=== PATIENT | male | born 1955 | race Caucasian/White ===

== ENCOUNTER 2016-02-29 10:41 | Emergency (ER) | payer BC ==
[~2016-02-29] VITALS: Ht 188 cm; Wt 94.0 kg
[~2016-02-29 10:41] MED LIST: ASPEC81 PO; CRG3125 PO; FLV1 PO; LPT40 PO; LSN5 PO; METH2.5T PO; NTRGSL/4 UT; PLV75 PO
[2016-02-29 10:46] VITALS: TEMP 36.3; Ht 188 cm; Wt 94.0 kg
[2016-02-29] MEDS ORDERED: AMOX1TAB42 PO (10:53)
--- NOTE | 2016-02-29 11:08 | EMERGENCY ROOM VISIT NOTE ---
History First contact with patient: 11:07 Chief Complaint: EYE ASSESSMENT Stated Complaint: RIGHT EYE ISSUES History of Present Illness The patient is a 60 year old male who presents to the Emergency Room via private vehicle with complaints of "right eye issues". Patient states that in early December he developed a cold that turned into a sinus infection and then develop drainage from his right eye. He states that he was on Augmentin for one month as well as prednisone in a rating seem to clear up. He states that the right eye subconjunctival hemorrhage and oozing lingered. He notes that at the end of January and in early February his sinuses became worse therefore he was also placed upon more Augmentin and notes that he still has one week left of this. The right eye continued to stay red and whose and feel slightly gritty. He states he was going to see the eye doctor this coming week but decided to come in to be seen today. He notes when he woke up today that looked more bloody and was oozing a yellowish green discharge. He notes that he was at [facility] today who sent him here for further evaluation and management. The patient states that the group will sometimes cloud over the pupil but then once he blinks and moves he has clear vision. The patient is on Plavix for a recent myocardial infarction. At this time he denies any chest pain, shortness of breath, fevers, chills, abdominal pain, neck pain, headache, blood coming from his eye. There is minimal associated eye pain rated as a 0-1/10. Review of Systems A complete 6-point Review of Systems was discussed with the patient, with pertinent positives and negatives listed in the History of Present Illness. All remaining Review of Systems questions can be considered negative unless otherwise specified. Past Medical/Surgical History Medical Problems: (1) Ankylosing spondylitis (2) Idiopathic peripheral neuropathy (3) Psoriasis (4) Psoriatic arthritis Heart disease, skin problems, hernia, tonsillectomy, heart attack Family History Cancer FATHER FH: abdominal aortic aneurysm FATHER BROTHER GRANDFATHER No Family History of: FH: aortic aneurysm Diabetes, cancer Social History Smoking Status: Never Smoker Drug Use: none Marital Status: Housing Status: lives with family Occupation Status: employed Social History: Patient is currently employed and lives at home with spouse. 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 Current/Historical Medications Scheduled Amoxicillin & Pot Clavulanate (Amoxicillin/Clavulanate P), 1 TAB PO BID Aspirin (Aspirin EC Low Dose), 81 MG PO QAM Atorvastatin (Atorvastatin Calcium), 40 MG PO QAM Clopidogrel Bisulfate (Clopidogrel), 75 MG PO QAM Folic Acid (Folic Acid), 1 MG PO 6XWK Methotrexate (Methotrexate), 20 MG PO WK Nitroglycerin (Nitrostat), 0.4 MG UT PRN Allergies Coded Allergies: No Known Allergies (Unverified , 07/16/10) Physical Exam Vital Signs Date Time Temp Pulse Resp B/P Pulse Ox O2 Delivery O2 Flow Rate FiO2 02/29/16 12:38 68 18 121/76 100 02/29/16 10:46 36.3 77 18 138/84 100 Room Air Physical Exam VITAL SIGNS - Vital signs and nursing notes were reviewed. Patient is afebrile , normotensive at 138/84, non-tachycardic and saturating well on room air 100%. GENERAL -60-year-old male appearing his stated age. Communicates well with provider and answers questions appropriately. HEAD -Normocephalic, Atraumatic. No Kim's Sign or Raccoon's Eyes. EYES - PERRL with EOMI bilaterally. No hyphema. No evidence of iritis or uveitis. Sclera without noticeable foreign body or excoriations. Right eye with subconjunctival hemorrhage. Palpebral conjunctiva pink and moist with no injection or discharge noted. Slit lamp examination performed as further described. EARS - No deformities of external structures noted on gross examination bilaterally. Handle of malleus, umbo, cone of light, pars tensa/flaccid all easily visualized. NOSE - Midline and without cyanosis. Without discharge. MOUTH/OROPHARYNX - Without perioral cyanosis. Tongue midline with equal elevation of palate bilaterally. No tonsillar hypertrophy, erythema, or exudates noted. Fair dentition noted. NECK - FROM assessed. No cervical lymphadenopathy noted. Slit Lamp Examination was performed of the right eye(s). Alcaine drops were applied to the affected eye(s) for proper anesthetization. The affected eye(s) were stained with Fluorescein stain to precipitate adequate visualization of any conjunctival/scleral excoriations or ulcers. The patient's face was comfortably rested on the chin guard of the slit lamp apparatus. The lights were dimmed and the affected eye(s) were thoroughly examined under microscopy using the blue light. No uptake was present in the right eye. Additionally, the eye(s) were examined under microscopy using the regular light. Close examination revealed a slight raised layer in the medial portion of the right eye that appears to be associated with a subconjunctival hemorrhage. Negative Praveen sign. Patient tolerated the procedure well and no complications were met. An Automated Tonometer was utilized to obtain bilateral orbital pressures. The pressures in the LEFT eye were found to be 25, 28, 26 and 28 with an average of 26.8. The pressures in the RIGHT eye were found to be 29, 26, 28 and 26 with an average of 27.3. Patient tolerated the procedure well and no complications were met. Medical Decision & Procedures Medications Administered Medications (Trade) Dose Ordered Sig/Stewart Route Start Time Stop Time Status Last Admin Dose Admin Proparacaine HCl (Alcaine 0.5% Oph Soln) 2 drops NOW STAT OP 02/29/16 11:19 02/29/16 11:20 DC 02/29/16 11:19 2 DROPS Medical Decision Patient was seen and evaluated as above. After obtaining a thorough history and physical examination visual acuity was assessed and was noted to be 20/13 bilaterally. The patient does not appear to have any pain with the eye other than slight irritation, he has minimal vision change and this is only with drainage over the eye. There is no drainage to inspection of the eye. No evidence of abrasion or corneal ulcer. I believe the patient is likely experiencing irritation secondary to a subconjunctival hemorrhage that has been exacerbated by his recent URI and Plavix use. The little bulge on the medial aspect of the right bulbar conjunctiva is likely small bleeding underneath the tissues. I do not suspect any acute bleed at this time. I'm unable to appreciate any emergent or surgical nature to the patient's symptoms at this time. The patient was discussed with my attending and I believe it is appropriate for the patient to follow up with an precast concrete products installer early this week and he is provided with the phone number for this. Patient is to call this first thing Wednesday morning. He is to return sooner if worsening. He was instructed upon management and to purchase lubricating eyedrops from the local store. He had questions answered prior to discharge and was discharged home in good condition. In the evaluation and treatment of this patient, the following differential diagnoses were considered: Corneal Abrasion, Conjunctivitis, Eye Contusion, Globe Injury, Orbital Floor Injury (Blowout Fracture), Corneal Ulcer, Keratitis , Herpes Zoster Opthalmic, Blepharitis, Orbital Cellulitis, Iritis, Scleritis/ Episcleritis, Uveitis, Temporal Arteritis, Subconjunctival Hemorrhage. Impression Primary Impression: Irritation of right eye Additional Impression: Subconjunctival hemorrhage of right eye Departure Information Dispostion Home / Self-Care Condition GOOD Referrals Ronn Reynaga Jr,D.O. (PCP) Adryan Rai MD Patient Instructions A Signature Page, My [facility] Additional Instructions You have been treated in the Emergency Department today for your right eye irritation and subconjunctival hemorrhage. Please purchase lubricating drops at a local pharmacy as we discussed. For pain control, you can use the following [id number] medicines (if >12 yo): - Regular strength (325mg/tab) Tylenol (acetaminophen) 2 tabs every 4-6 hours as needed. Do not exceed 12 tablets in a 24 hour period. Avoid taking more than 4 grams (4000 mg) of Tylenol per day. This includes any other sources of acetaminophen you may take on a regular basis. You should relax in a quiet, dark place for the rest of the day. You should wear sunglasses while outside for the next few days until your eyes are not as sensitive to the light. You should schedule a follow-up appointment in 2-3 days with your Primary Care Provider. You have been provided the number for an precast concrete products installer. Please call this number first thing Wednesday to request follow-up as soon as possible. ( Dr. Rai) Return to the Emergency Department if your current symptoms worsen despite treatment course outlined above, or if you develop any of the following symptoms : intractable pain, visual disturbances, loss of vision, increased redness, swelling, drainage, or if you develop a fever. Please return to the emergency department with any worsening of your symptoms or any new/concerning symptoms.
[2016-02-29] MEDS ORDERED: PROPARACAINE HCL 0.5% OP SOLN 15 ML BTL OP STA (11:19)
[2016-02-29 12:38] VITALS: BP 121/76; PULSE 68; O2SAT 100
--- NOTE | 2016-02-29 13:28 | EMERGENCY ROOM VISIT NOTE ---
ED Visit Note First contact with patient: 11:07 Patient evaluated at request a PA. Patient appeared to be on Plavix with recent upper respiratory symptoms and conjunctival hemorrhage for the last few weeks. He has normal vision and review of systems negative for visual complaints of he is concerned about the appearance of his eye. PA performed forcing staining of the eye which was negative and intraocular pressures which were only mildly elevated. I'm in agreement with plan for outpatient follow-up with optometry or ophthalmology this week. Patient advised that etiology of the conjunctival hemorrhages likely secondary to Plavix and recent upper respiratory issues. He understands return to emergency room for any worsening or worrisome signs
== END 2016-02-29 12:39 | disposition home or self-care (01) ==
LOC: C.EDB 10:42 → C.EDD 12:39
DX: H57.8 Other specified disorders of eye and adnexa (principal); H11.31 Conjunctival hemorrhage, right eye

== ENCOUNTER → 2016-05-07 | Outpatient (CLI) | payer BC ==
[~2016-05-07] MED LIST changes: +AMOX1TAB42 PO; -CRG3125 PO; -LSN5 PO
[2016-05-07 13:32] LABS: BLOOD UREA NITROGEN 20 mg/dl (7-18); BUN/CREATININE RATIO 20.5 (10-20); CALCIUM 8.9 mg/dl (8.5-10.1); CARBON DIOXIDE 29 mmol/L (21-32); CHLORIDE 106 mmol/L (98-107); CREATININE 0.98 mg/dl (0.60-1.40); GLUCOSE 86 mg/dl (70-99); MAGNESIUM 2.3 mg/dl (1.8-2.4); POTASSIUM 3.9 mmol/L (3.5-5.1); SODIUM 141 mmol/L (136-145)
== END | disposition home or self-care (01) ==
LOC: C.LAB1850 12:23
PROVIDERS: ATTEND Internal Medicine
DX: R00.2 Palpitations (principal)

== ENCOUNTER 2024-09-24 21:55 | Observation (INO) ==
[2024-09-24] MEDS: SODIUM CHLORIDE 0.9% 500 ML IV ONE (22:37)
[2024-09-24] MEDS: METOCLOPRAMIDE HCL INJ 5 MG/ML 2 ML VIAL IV ONE (22:37)
[2024-09-24] MEDS: diphenhydrAMINE 50 MG/ML VIAL IV STA (22:37)
[2024-09-24 22:38] LABS: Hematocrit (blood only) 41.4 % (42.0-52.0); Hemoglobin 14.5 g/dl (14.0-18.0); Immature Granulocytes # (auto) 0.04 K/uL (0.01-0.20); Immature Granulocytes % (auto) 0.5 %; Mean Corpuscular Hemoglobin 31.7 pg (25.0-34.0); Mean Corpuscular Volume 90.4 fL (80.0-100.0); Platelet Count 218 K/uL (130-400); RDW Standard Deviation 44.8 fL (36.4-46.3); Red Blood Count 4.58 M/uL (4.70-6.10); White Blood Count 8.68 K/ul (4.8-10.8)
--- NOTE | 2024-09-24 22:41 | CT Scan Report ---
Exam(s): CT HEAD Without Contrast EXAM: CT Head Without Intravenous Contrast CLINICAL HISTORY: Reason for exam: shultz. TECHNIQUE: Axial computed tomography images of the head/brain without intravenous contrast. CTDI is 36 mGy and DLP is 624 mGy-cm. Automated exposure control was utilized for the study. A dose lowering technique was utilized adhering to the principles of ALARA. COMPARISON: No relevant prior studies available. FINDINGS: Brain: No hemorrhage, extra-axial fluid collection, mass effect, or edema. Ventricles: Unremarkable. Bones/joints: Unremarkable. No fracture. Soft tissues: Unremarkable. Sinuses: No acute sinusitis. Mastoid air cells: Unremarkable as visualized. IMPRESSION: 1. No acute intracranial abnormality. Electronically signed by: Logan Rasmussen MD 09/24/24 22:40 PM
--- NOTE | 2024-09-24 22:47 | Emergency Department Note ---
History of Present Illness General Chief complaint: Hypertension Stated complaint: HIGH BP, NAUSEA, HEADACHE, HX OF HEART ATTACK Time Seen by Provider: 09/24/24 22:14 History of Present Illness Provider complaint: High blood pressure nausea headache Maximum Pain Intensity: 1 69-year-old male presents emergency department for headache nausea and high blood pressure. Patient reports that 2030 tonight he suddenly began feeling very nauseous and started having a headache. He states he took his blood pressure and it was elevated. Patient states his symptoms felt exactly like when he had a heart attack previously. He reports no chest pain or difficulty breathing but states that is exactly how he presented last time he had a heart attack. No recent travel. No exogenous hormone usage. No recent surgeries or traumas. No cough or fever. No hemoptysis. No melena or hematochezia. No hematuria or dysuria. Home Medications Medication Instructions Recorded Confirmed Type aspirin 81 mg tablet,delayed 81 mg PO DAILY 05/04/20 11/10/23 History release atorvastatin 40 mg tablet 40 mg PO DAILY 05/04/20 11/10/23 History clopidogrel 75 mg tablet 75 mg PO DAILY 05/04/20 11/10/23 History folic acid 1 mg tablet 1 mg PO 6XWK 05/04/20 11/10/23 History losartan 25 mg tablet 25 mg PO DAILY 05/04/20 11/10/23 History methotrexate sodium 2.5 mg tablet 20 mg PO FR 05/04/20 11/10/23 History nitroglycerin 0.4 mg sublingual 0.4 mg sublingual Q5M PRN Chest 05/04/20 11/10/23 History tablet Pain doxycycline hyclate 100 mg capsule 100 mg PO BID 10 days #20 caps 11/10/23 11/10/23 Rx triamcinolone acetonide 0.5 % 1 applic topical BID #15 grams 11/10/23 11/10/23 Rx topical cream Allergies Allergy/AdvReac Type Severity Reaction Status Date / Time hydroxychloroquine Allergy Intermediate Rash Unverified 11/10/23 16:29 [From Plaquenil] Past Med/Surg History Problem List Nausea (Acute) Hypertension (Acute) Psoriatic arthritis (Chronic) Ankylosing spondylitis (Chronic) Psoriasis (Chronic) Idiopathic peripheral neuropathy (Chronic) RCA occlusion (Acute) S/P right coronary artery (RCA) stent placement (Acute) Social History Smoking Status: Never smoker Tobacco Type: Cigarettes Feels Safe at Home: Yes Physical Exam Vital Signs Vital Signs - 24 hr 09/24/24 21:56 09/24/24 22:03 09/24/24 22:08 Temperature 36.8 C Temperature Source Temporal Artery Scan Pulse Rate 69 Respiratory Rate 18 Respiratory Effort / Characteristics Non-Labored Non-Labored Spontaneous Respiratory Depth Normal Normal Respiratory Pattern Regular Blood Pressure 157/89 H Blood Pressure Mean 111 Pulse Oximetry 99 Oxygen Delivery Method Room Air Room Air Sepsis Recent Fever Within 48 Hours No Sepsis New/Unexplained Change in Mental Status N/A Sepsis Action Taken by Nursing No Action Required 09/24/24 22:08 09/24/24 22:17 Temperature Temperature Source Pulse Rate 70 Respiratory Rate Respiratory Effort / Characteristics Respiratory Depth Respiratory Pattern Blood Pressure Blood Pressure Mean Pulse Oximetry Oxygen Delivery Method Room Air Sepsis Recent Fever Within 48 Hours Sepsis New/Unexplained Change in Mental Status Sepsis Action Taken by Nursing Physical Exam GENERAL: He is oriented to person, place, and time. He appears well-developed and well-nourished. He does not appear distressed. HENT: Exam performed. - Head: Normocephalic and atraumatic. - Right Ear: External ear normal. No mastoid erythema - Left Ear: External ear normal. No mastoid erythema - Mouth/Throat: The oropharynx is clear and moist. No trismus in the jaw. No dental abscesses or uvula swelling. No oropharyngeal exudate or tonsillar abscesses. EYES: Conjunctivae and EOM are normal. Pupils are equal, round, and reactive to light. Right eye exhibits no discharge. Left eye exhibits no discharge. No scleral icterus. NECK: Normal range of motion. Neck supple. No JVD present. No rigidity. No tracheal deviation and normal range of motion present. CV: Normal rate, regular rhythm, normal heart sounds and intact distal pulses. There is no peripheral edema. Palpable radial pulses bue. PULM/CHEST: Effort normal and breath sounds normal. No respiratory distress. No stridor. He has no wheezes. He has no rales. - Chest Wall: He exhibits no tenderness. ABD: The abdomen is soft. There is no tenderness. There is no rebound, no guarding. MUSC/SKEL: Normal range of motion. There is no peripheral edema, tenderness or deformity. LYMPH: No cervical adenopathy. NEURO: He is alert and oriented to person, place, and time. He has normal strength. No cranial nerve deficit or sensory deficit. Coordination and gait normal. GCS eye subscore is 4. GCS verbal subscore is 5. GCS motor subscore is 6. Cerebellar tests wnl. SKIN: Skin is warm and dry. He is not diaphoretic. PSYCH: He has a normal mood and affect. Behavior is normal. Judgment and thought content normal. Course Course 2213: The patient was evaluated in room C4. A complete history and physical exam was performed Cardiac monitoring: An order was placed for continuous cardiac monitoring. The monitor shows a rate of 70 with sinus rhythm interpreted by or 2309: Vital signs stable. Labs and imaging are unremarkable. CT of the head shows no ICH. CT of the head was conducted within 6-hour of symptom onset effectively ruling out SAH. Patient states his symptoms felt exactly the same way did last time he had a heart attack requiring a stent. Given this, patient will be admitted for rule out ACS. Administered Medications Discontinued Medications Aspirin (Aspirin 81 Mg Chew) 324 mg PO NOW STA Stop: 09/24/24 22:44 Last Admin: 09/24/24 22:58 Dose: 324 mg Documented By: YAHAIRA Diphenhydramine HCl (Diphenhydramine 50 Mg/Ml Vial) 25 mg IV NOW STA Stop: 09/24/24 22:24 Last Admin: 09/24/24 22:37 Dose: 25 mg Documented By: LEONELA Sodium Chloride (Nss) 500 mls @ 999 mls/hr IV .Q31M ONE Stop: 09/24/24 22:53 Last Admin: 09/24/24 22:37 Dose: 999 mls/hr Documented By: LEONELA Metoclopramide HCl (Metoclopramide Hcl Inj 5 Mg/Ml 2 Ml Vial) 5 mg IV ONE ONE Stop: 09/24/24 22:24 Last Admin: 09/24/24 22:37 Dose: 5 mg Documented By: LEONELA Medical Decision Making Laboratory Data Attestation: I reviewed the patient's lab results. 09/24/24 22:17 09/24/24 22:17 Lab Results 09/24/24 Range/Units 22:17 WBC 8.68 (4.8-10.8) K/ul RBC 4.58 L (4.70-6.10) M/uL Hgb 14.5 (14.0-18.0) g/dl Hct 41.4 L (42.0-52.0) % MCV 90.4 (80.0-100.0) fL MCH 31.7 (25.0-34.0) pg MCHC 35.0 (32.0-36.0) g/dL RDW Std Deviation 44.8 (36.4-46.3) fL RDW Coeff of Kraig 13.9 (11.5-14.5) % Plt Count 218 (130-400) K/uL MPV 9.1 L (9.4-12.4) fL Immature Gran % (Auto) 0.5 % Neut % (Auto) 65.8 % Lymph % (Auto) 27.1 % Tate % (Auto) 4.8 % Eos % (Auto) 1.5 % Baso % (Auto) 0.3 % Neut # (Auto) 5.71 (1.40-6.50) K/uL Lymph # (Auto) 2.35 (1.20-3.40) K/uL Tate # (Auto) 0.42 (0.11-0.59) K/uL Eos # (Auto) 0.13 (0.00-0.50) K/uL Baso # (Auto) 0.03 (0.00-0.20) K/uL Immature Gran # (Auto) 0.04 (0.01-0.20) K/uL PT 11.1 (9.0-12.0) Seconds INR 1.0 (0.9-1.1) APTT 25 (21-31) Seconds PTT Ratio 0.9 Sodium 139 (136-145) mmol/L Potassium 3.8 (3.5-5.1) mmol/L Chloride 106 (98-107) mmol/L Carbon Dioxide 28 (21-32) mmol/L Anion Gap 5 (3-11) BUN 22 (6-23) mg/dl Creatinine 1.10 (0.6-1.4) mg/dl Est Cr Clr Drug Dosing 71.6 ml/min eGFR 71.77 BUN/Creatinine Ratio 20.0 (10-20) Glucose 86 (70-99(Fasting)) mg/dl Calcium 8.6 (8.6-10.3) mg/dl Troponin I High Sens 6.2 (0-20) pg/ml Imaging Data Attestation: I personally reviewed and interpreted this imaging study as follows: My Impression: Chest x-ray negative. Airway clear. No pneumothorax. No consolidation. No cardiomegaly or cephalization.. No free air under the diaphragm. No fractures of the skeletal structures. Radiologist's Impression: Chest X-Ray 09/24/24 22:08 Exam(s): XR CXR 1 VIEW EXAM: XR Chest, 1 View CLINICAL HISTORY: Reason for exam: Chest pain, nonspecific. TECHNIQUE: Frontal view of the chest. COMPARISON: 07/08/2014 FINDINGS: Lungs: No consolidation. No overt edema. Pleural space: No pleural effusion. No pneumothorax. Heart: Unremarkable. No cardiomegaly. IMPRESSION: No acute cardiopulmonary abnormality. Electronically signed by: Logan Rsamussen MD 09/24/24 22:[address] 09/24/24 22:15 Exam(s): CT HEAD Without Contrast EXAM: CT Head Without Intravenous Contrast CLINICAL HISTORY: Reason for exam: shultz. TECHNIQUE: Axial computed tomography images of the head/brain without intravenous contrast. CTDI is 36 mGy and DLP is 624 mGy-cm. Automated exposure control was utilized for the study. A dose lowering technique was utilized adhering to the principles of ALARA. COMPARISON: No relevant prior studies available. FINDINGS: Brain: No hemorrhage, extra-axial fluid collection, mass effect, or edema. Ventricles: Unremarkable. Bones/joints: Unremarkable. No fracture. Soft tissues: Unremarkable. Sinuses: No acute sinusitis. Mastoid air cells: Unremarkable as visualized. IMPRESSION: 1. No acute intracranial abnormality. Electronically signed by: Logan Rasmussen MD 09/24/24 22:40 PM ECG Data Attestation: I personally reviewed and interpreted this ECG as follows: Rate (beats per minute): 68 Rhythm: + normal sinus ECG Intervals/blocks: + Normal QRS, + Normal CT and + Normal QT-c ECG ST segments: + Normal ST segments [facility] Narrative 2214: The patient was evaluated in room C4. A complete history and physical exam was performed Cardiac monitoring: An order was placed for continuous cardiac monitoring. The monitor shows a rate of 70 with sinus rhythm interpreted by me 2309: Vital signs stable. Labs and imaging are unremarkable. CT of the head shows no ICH. CT of the head was conducted within 6-hour of symptom onset effectively ruling out SAH. Patient states his symptoms felt exactly the same way did last time he had a heart attack requiring a stent. Given this, patient will be admitted for rule out ACS. Impression & Plan Hypertension, Nausea Discharge Plan Visit Data Chief Complaint: Hypertension Stated Complaint: HIGH BP, NAUSEA, HEADACHE, HX OF HEART ATTACK ED Provider: Eddie Jaimes Discharge Problem: Hypertension, Nausea Patient Disposition: Being Evaluated by Hospitalist Condition: Good Forms Stand Alone Forms: My [facility] Prescriptions Prescriptions: No Action triamcinolone acetonide 0.5 % cream 1 applic topical BID Qty: 15 0RF doxycycline hyclate 100 mg capsule 100 mg PO BID 10 Days Qty: 20 0RF atorvastatin 40 mg tablet 40 mg PO DAILY clopidogrel 75 mg tablet 75 mg PO DAILY aspirin 81 mg Tablet,Delayed Release (Dr/Ec) 81 mg PO DAILY methotrexate sodium 2.5 mg tablet 20 mg PO FR losartan 25 mg tablet 25 mg PO DAILY nitroglycerin 0.4 mg tablet, sublingual 0.4 mg sublingual Q5M PRN (Reason: Chest Pain) folic acid 1 mg tablet 1 mg PO [id number] Rx Instructions: Not Wednesday due to Methotrexate Referrals Referrals: Jens Coyne DO [Primary Care Provider] -
--- NOTE | 2024-09-24 22:54 | XRay Report ---
Exam(s): XR CXR 1 VIEW EXAM: XR Chest, 1 View CLINICAL HISTORY: Reason for exam: Chest pain, nonspecific. TECHNIQUE: Frontal view of the chest. COMPARISON: 07/08/2014 FINDINGS: Lungs: No consolidation. No overt edema. Pleural space: No pleural effusion. No pneumothorax. Heart: Unremarkable. No cardiomegaly. IMPRESSION: No acute cardiopulmonary abnormality. Electronically signed by: Logan Rasmussen MD 09/24/24 22:54 PM
[2024-09-24 22:55] LABS: Anion Gap 5.0 (3-11); Blood Urea Nitrogen 22.0 mg/dl (6-23); Calcium 8.6 mg/dl (8.6-10.3); Carbon Dioxide 28.0 mmol/L (21-32); Chloride 106.0 mmol/L (98-107); Creatinine Clr Calc Pharmacy 71.6 ml/min; Glucose 86.0 mg/dl (70-99(Fasting)); Potassium 3.8 mmol/L (3.5-5.1); Sodium 139.0 mmol/L (136-145)
[2024-09-24] MEDS: ASPIRIN 81 MG CHEW PO STA (22:58)
[2024-09-24 23:04] LABS: INR 1.0 (0.9-1.1); Partial Thromboplastin Time 25 Seconds (21-31); Prothrombin Time 11.1 Seconds (9.0-12.0)
--- NOTE | 2024-09-25 00:13 | History & Physical Report ---
Date of Service September 25, 2024 Assessment & Plan (1) Headache: Plan: Assessment and plan below following discussion of case with ED provider and reviewing patient history/pertinent normal/abnormal diagnostic test results. Headache Uncontrolled hypertension CAD status post stent (2014) valvular heart disease (moderate AR, mild /MR, TTE 2023) hyperlipidemia, on statin Rx psoriatic arthritis, stable on regimen OBS Admit to med/tele Titrate ARB DVT prophylaxis per Lovenox subcu Full code Text document was generated using [employer] voice recognition software. It may contain grammatical or spelling errors. Kindly contact undersigned for clarification of any documentation item in question. History of Present Illness Chief Complaint: Nausea, headache symptoms Primary Care Provider: Jens Coyne DO History obtained from patient and records. Medical history significant for CAD status post stent (2014), valvular heart disease (moderate AR, mild /MR, TTE 2023), PVCs, hypertension, hyperlipidemia, psoriatic arthritis, ankylosing spondylitis, peripheral neuropathy. Last confinement 2014 for chest pain and left arm pain. Patient found to have inferior wall STEMI. RCA stent placed. Last night, patient had generalized headache and nausea symptoms. Generalized weakness at home. No unusual chest pain or SOB. No abdominal pain. Compliant with home medications. No unusual stress. SBP noted to be was 170s at home which is unusual for him. Patient currently comfortable except for mild nausea symptoms. Highest SBP of 160s documented at the ER. 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 Allergies Allergy/AdvReac Type Severity Reaction Status Date / Time hydroxychloroquine Allergy Intermediate Rash Verified 09/24/24 23:12 [From Plaquenil] Home Medications Medication Instructions Recorded Confirmed Type aspirin 81 mg tablet,delayed 81 mg PO DAILY 05/04/20 09/24/24 History release atorvastatin 40 mg tablet 40 mg PO DAILY 05/04/20 09/24/24 History clopidogrel 75 mg tablet 75 mg PO DAILY 05/04/20 09/24/24 History folic acid 1 mg tablet 1 mg PO 6XWK 05/04/20 09/24/24 History losartan 25 mg tablet 25 mg PO DAILY 05/04/20 09/24/24 History methotrexate sodium 2.5 mg tablet 20 mg PO WK 05/04/20 09/24/24 History nitroglycerin 0.4 mg sublingual 0.4 mg sublingual Q5M PRN Chest 05/04/20 0 09/24/24 History tablet Pain triamcinolone acetonide 0.5 % 1 applic topical BID PRN SKIN 09/24/24 09/24/24 History topical cream IRRITATIONS Past Med/Surg History Problem List Headache Nausea (Acute) Hypertension (Acute) Psoriatic arthritis (Chronic) Ankylosing spondylitis (Chronic) Psoriasis (Chronic) Idiopathic peripheral neuropathy (Chronic) RCA occlusion (Acute) S/P right coronary artery (RCA) stent placement (Acute) Social History Smoking Status: Never smoker Tobacco Type: Cigarettes Hx Alcohol Use: No Hx Substance Use: No Preferred Language: Indonesian Communication Ability: Effective Coffee Grower Required: No Beliefs That Will Affect Care: None Current Living Situation: Spouse Current Living Situation Comment: lives at home with Feels Safe at Home: Yes Safety Concerns: Feels Safe At This Time Assistive Devices: Glasses and Hearing Aid - Bilateral Review of Systems Review of Systems: As per HPI, all other systems reviewed and negative Physical Exam Physical Exam: GENERAL: Comfortable, pleasant, no respiratory distress SKIN: Normal color, warm HEENT: Alopecia, pink palpebral conjunctivae, no ptosis, moist buccal mucosa NECK : Supple, no tenderness CHEST : CTA, no tenderness HEART : RRR, no obvious murmurs ABDOMEN: Some distention, nontender EXTREMITIES : No LE swelling/tenderness, palpable pulses, no other conspicuous deformities noted NEUROLOGIC : Coherent, no facial asymmetry, no other gross focality Results & Data Results & Data Vital Signs (Past 12 Hours) Vital Signs Temp Pulse Resp BP Pulse Ox O2 Del Method 09/24/24 23:33 69 15 97 09/24/24 23:30 138/76 09/24/24 23:30 138/76 09/24/24 23:24 71 16 97 09/24/24 23:21 67 12 97 09/24/24 23:00 147/79 H 09/24/24 22:54 71 14 98 09/24/24 22:42 63 16 99 09/24/24 22:33 66 16 99 09/24/24 22:31 148/81 H 09/24/24 22:18 68 16 99 09/24/24 22:18 166/91 H 09/24/24 22:17 70 09/24/24 22:08 Room Air 09/24/24 22:08 Room Air 09/24/24 22:03 36.8 C 69 18 157/89 H 99 Room Air Laboratory Results Laboratory Results WBC 8.68 K/ul (4.8-10.8) 09/24/24 22:17 RBC 4.58 M/uL (4.70-6.10) L 09/24/24 22:17 Hgb 14.5 g/dl (14.0-18.0) 09/24/24 22:17 Hct 41.4 % (42.0-52.0) L 09/24/24 22:17 MCV 90.4 fL (80.0-100.0) 09/24/24 22:17 MCH 31.7 pg (25.0-34.0) 09/24/24 22:17 MCHC 35.0 g/dL (32.0-36.0) 09/24/24 22:17 RDW Std Deviation 44.8 fL (36.4-46.3) 09/24/24 22:17 RDW Coeff of Kraig 13.9 % (11.5-14.5) 09/24/24 22:17 Plt Count 218 K/uL (130-400) 09/24/24 22:17 MPV 9.1 fL (9.4-12.4) L 09/24/24 22:17 Immature Gran % (Auto) 0.5 % 09/24/24 22:17 Neut % (Auto) 65.8 % 09/24/24 22:17 Lymph % (Auto) 27.1 % 09/24/24 22:17 Williamson % (Auto) 4.8 % 09/24/24 22:17 Eos % (Auto) 1.5 % 09/24/24 22:17 Baso % (Auto) 0.3 % 09/24/24 22:17 Neut # (Auto) 5.71 K/uL (1.40-6.50) 09/24/24 22:17 Lymph # (Auto) 2.35 K/uL (1.20-3.40) 09/24/24 22:17 Williamson # (Auto) 0.42 K/uL (0.11-0.59) 09/24/24 22:17 Eos # (Auto) 0.13 K/uL (0.00-0.50) 09/24/24 22:17 Baso # (Auto) 0.03 K/uL (0.00-0.20) 09/24/24 22:17 Immature Gran # (Auto) 0.04 K/uL (0.01-0.20) 09/24/24 22:17 PT 11.1 Seconds (9.0-12.0) 09/24/24 22:17 INR 1.0 (0.9-1.1) 09/24/24 22:17 APTT 25 Seconds (21-31) 09/24/24 22:17 PTT Ratio 0.9 09/24/24 22:17 Sodium 139 mmol/L (136-145) 09/24/24 22:17 Potassium 3.8 mmol/L (3.5-5.1) 09/24/24 22:17 Chloride 106 mmol/L (98-107) 09/24/24 22:17 Carbon Dioxide 28 mmol/L (21-32) 09/24/24 22:17 Anion Gap 5 (3-11) 09/24/24 22:17 BUN 22 mg/dl (6-23) 09/24/24 22:17 Creatinine 1.10 mg/dl (0.6-1.4) 09/24/24 22:17 Est Cr Clr Drug Dosing 71.6 ml/min 09/24/24 22:17 eGFR 71.77 09/24/24 22:17 BUN/Creatinine Ratio 20.0 (10-20) 09/24/24 22:17 Glucose 86 mg/dl (70-99(Fasting)) 09/24/24 22:17 Calcium 8.6 mg/dl (8.6-10.3) 09/24/24 22:17 Troponin I High Sens 6.2 pg/ml (0-20) 09/24/24 22:17 Impressions Chest X-Ray 09/24/24 22:08 Exam(s): XR CXR 1 VIEW EXAM: XR Chest, 1 View CLINICAL HISTORY: Reason for exam: Chest pain, nonspecific. TECHNIQUE: Frontal view of the chest. COMPARISON: 07/08/2014 FINDINGS: Lungs: No consolidation. No overt edema. Pleural space: No pleural effusion. No pneumothorax. Heart: Unremarkable. No cardiomegaly. IMPRESSION: No acute cardiopulmonary abnormality. Electronically signed by: Logan Rasmussen MD 09/24/24 22:[address] 09/24/24 22:15 Exam(s): CT HEAD Without Contrast EXAM: CT Head Without Intravenous Contrast CLINICAL HISTORY: Reason for exam: shultz. TECHNIQUE: Axial computed tomography images of the head/brain without intravenous contrast. CTDI is 36 mGy and DLP is 624 mGy-cm. Automated exposure control was utilized for the study. A dose lowering technique was utilized adhering to the principles of ALARA. COMPARISON: No relevant prior studies available. FINDINGS: Brain: No hemorrhage, extra-axial fluid collection, mass effect, or edema. Ventricles: Unremarkable. Bones/joints: Unremarkable. No fracture. Soft tissues: Unremarkable. Sinuses: No acute sinusitis. Mastoid air cells: Unremarkable as visualized. IMPRESSION: 1. No acute intracranial abnormality. Electronically signed by: Logan Rasmussen MD 09/24/24 22:40 PM Diagnostic Findings EKG could not be located at time of dictation.
[2024-09-25 00:27] LABS: Magnesium 2.1 mg/dl (1.7-2.4)
[2024-09-25] MEDS ORDERED: TRIAMCINOLONE ACET 0.5% CR 15 GM TUBE TOP PRN (00:27)
[2024-09-25] MEDS ORDERED: PROMETHAZINE 6.25 MG/50.25 ML BAG IV PRN (00:27)
[2024-09-25 00:28] LABS: Alanine Aminotransferase 35.0 U/L (7-52); Alkaline Phosphatase 65.0 U/L (34-104); Bilirubin,Total 0.9 mg/dl (0.2-1.0); Total Protein 6.5 gm/dl (6.0-8.3)
[2024-09-25] MEDS ORDERED: MoRPHine SULFATE 4 MG/ML 1 ML CARP\\VIAL IV PRN (00:28)
[2024-09-25] MEDS ORDERED: LORazepam 0.5 MG TAB PO PRN (00:28)
[2024-09-25] MEDS ORDERED: NITROGLYCERIN SL 0.4 MG/TAB TAB SL PRN (01:13)
[2024-09-25] MEDS: LOSARTAN POTASSIUM 50 MG TAB PO SCH (01:27)
[2024-09-25] MEDS: SODIUM CHLORIDE 0.9% 1,000 ML IV ONE (01:27)
[2024-09-25 07:42] LABS: Thyroid Stimulating Hormone 4.046 uIu/ml (0.300-4.500)
[2024-09-25] MEDS: ASPIRIN 81 MG ECTAB PO SCH (08:52)
[2024-09-25] MEDS: ATORVASTATIN 40 MG TAB PO SCH (08:52)
[2024-09-25] MEDS: CLOPIDOGREL BISULFATE 75 MG TAB PO SCH (08:52)
[2024-09-25] MEDS: ENOXAPARIN INJ 40 MG/0.4 ML SYR SQ SCH (08:53)
--- NOTE | 2024-09-25 11:43 | Electrocardiogram Report ---
Test Reason : Blood Pressure : */* mmHG Vent. Rate : 68 BPM Atrial Rate : 68 BPM P-R Int : 156 ms QRS Dur : 88 ms QT Int : 396 ms P-R-T Axes : 43 7 15 degrees QTcB Int : 421 ms Normal sinus rhythm Possible Inferior infarct (cited on or before 06-Jul-2014) Abnormal ECG When compared with ECG of 08-Jul-2014 06:21, ST no longer elevated in Inferior leads Non-specific change in ST segment in Lateral leads T wave inversion less evident in Inferior leads T wave inversion no longer evident in Anterior leads Confirmed by Varun Winkler ([id number]) on 09/25/2024 11:42:30 AM Referred By: REFERRED SELF Confirmed By: Varun Winkler
--- NOTE | 2024-09-25 15:02 | Discharge Summary ---
Date of Service September 25, 2024 Admission HPI Per Admitting Provider History obtained from patient and records. Medical history significant for CAD status post stent (2014), valvular heart disease (moderate AR, mild /MR, TTE 2023), PVCs, hypertension, hyperlipidemia, psoriatic arthritis, ankylosing spondylitis, peripheral neuropathy. Last confinement 2014 for chest pain and left arm pain. Patient found to have inferior wall STEMI. RCA stent placed. Last night, patient had generalized headache and nausea symptoms. Generalized weakness at home. No unusual chest pain or SOB. No abdominal pain. Compliant with home medications. No unusual stress. SBP noted to be was 170s at home which is unusual for him. Patient currently comfortable except for mild nausea symptoms. Highest SBP of 160s documented at the ER. 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 Admission Exam Per Admitting Provider GENERAL: Comfortable, pleasant, no respiratory distress SKIN: Normal color, warm HEENT: Alopecia, pink palpebral conjunctivae, no ptosis, moist buccal mucosa NECK : Supple, no tenderness CHEST : CTA, no tenderness HEART : RRR, no obvious murmurs ABDOMEN: Some distention, nontender EXTREMITIES : No LE swelling/tenderness, palpable pulses, no other conspicuous deformities noted NEUROLOGIC : Coherent, no facial asymmetry, no other gross focality Principal Diagnosis Uncontrolled hypertension headache Discharge Exam GENERAL: Comfortable, pleasant, no respiratory distress SKIN: Normal color, warm HEENT: NC/AT. EOMI. NECK : Supple, no tenderness CHEST : CTA, no tenderness HEART : RRR, no obvious murmurs ABDOMEN: Some distention, nontender, soft EXTREMITIES : No LE edema, moves extremities NEUROLOGIC : Coherent, no facial asymmetry, speech fluent, answers appropriately, moves extremities Discharge Data Allergies Allergy/AdvReac Type Severity Reaction Status Date / Time hydroxychloroquine Allergy Intermediate Rash Verified 09/24/24 23:12 [From Plaquenil] Consultations 09/24/24 23:20 ED Decision to Admit Stat Ordered Studies 09/24/24 22:15 CT head/brain wo con Stat FINDINGS: Brain: No hemorrhage, extra-axial fluid collection, mass effect, or edema. Ventricles: Unremarkable. Bones/joints: Unremarkable. No fracture. Soft tissues: Unremarkable. Sinuses: No acute sinusitis. Mastoid air cells: Unremarkable as visualized. IMPRESSION: 1. No acute intracranial abnormality. Hospital Course (1) Headache: Assessment and plan below following discussion of case with ED provider and reviewing patient history/pertinent normal/abnormal diagnostic test results. Headache Uncontrolled hypertension CAD status post stent (2014) valvular heart disease (moderate AR, mild /MR, TTE 2023) hyperlipidemia, on statin Rx psoriatic arthritis, stable on regimen Admitted to med/tele Troponin x3 negative Echo obtained - LV EF 55-60%, mild concentric LVH. aortic valve is trileaflet, noncoronary aortic valve cusp is moderately dilated. Aortic valve sclerosis moderate, w/o significant aortic valve stenosis. Mild aortic regurg. Mild mitral regurg. Compared to study dated 07/06/2014 inferior/posterior wall motion has improved. 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 You should be seen by primary care doctor within 1 week. You don't need to have repeat Echocardiogram in October - this study can be cancelled. Take losartan 50 mg daily and monitor your blood pressure, if you can, and keep a log. Pending Studies at Discharge: No Stand-Alone Forms: My [employer], Smoking Cessation Medications and DC Order Prescriptions: New losartan 50 mg Tablet 50 mg PO DAILY Qty: 30 0RF Continued atorvastatin 40 mg tablet 40 mg PO DAILY clopidogrel 75 mg tablet 75 mg PO DAILY aspirin 81 mg Tablet,Delayed Release (Dr/Ec) 81 mg PO DAILY methotrexate sodium 2.5 mg tablet 20 mg PO WK Rx Instructions: FRIDAYS nitroglycerin 0.4 mg tablet, sublingual 0.4 mg sublingual Q5M PRN (Reason: Chest Pain) folic acid 1 mg tablet 1 mg PO 6XWK Rx Instructions: Not Wednesday due to Methotrexate triamcinolone acetonide 0.5 % cream 1 applic topical BID PRN (Reason: SKIN IRRITATIONS) Discontinued losartan 25 mg tablet 25 mg PO DAILY Discharge Orders: Discharge Order (Routine); Ordered 09/25/24 Ordered By: Duke Aldridge Admission Data Admit Date/Time: 09/25/24 00:14 Attending Provider: Duke Aldridge Admit Provider: Neville Arteaga Primary Care Provider: Jens Coyne Other Providers: Neville Arteaga
[2024-09-25 15:08] VITALS: BP 119/72; PULSE 68; RESP 18; TEMP 97.5; O2SAT 97
== END 2024-09-25 15:27 | disposition home or self-care (01) ==
LOC: ED 21:55 → 2N 21:55